=== PATIENT | male | born 1960 | race Caucasian/White ===

== ENCOUNTER 2021-09-18 14:38 | Outpatient (REF) | payer BC, SELFPAY ==
--- NOTE | ~2021-09-18 | XR_ITS ---
EXAMINATION: XR ABDOMEN KUB CLINICAL INDICATION: Ureteral stone COMPARISON: None TECHNIQUE: AP view of the abdomen. FINDINGS: No right-sided stone is seen. There are several high densities that project over the lower pole of the left kidney suggestive of stones, largest measuring 6 mm. There are 2 round laminated calcification in the left pelvis suggestive of calcified phleboliths. There is a more superior 3 x 4 mm calcification does not appear round. It is uncertain whether this presents a left distal ureteral stone or phlebolith. There are other smaller left pelvic calcifications measuring 1 to 2 mm also difficult to characterize. Bowel gas pattern is normal. There are postsurgical changes to the lower lumbar spine. XR/XR KUB IMPRESSION: Left lower pole renal stones. Several left pelvic calcifications, questionable for a left distal ureteral stone versus calcified phlebolith.
== END 2021-09-18 14:39 | disposition home or self-care (01) ==
LOC: HO.XRAY 14:38
PROVIDERS: PCP Internal Medicine; Visit Provider Urology
DX: N20.0 Calculus of kidney (principal); N20.1 Calculus of ureter; C67.9 Malignant neoplasm of bladder, unspecified
CPT/HCPCS: 52000; 74018

== ENCOUNTER 2021-09-18 16:13 | Outpatient (REF) | payer BC, SELFPAY ==
[2021-09-18 16:39] LABS: Urine Cytology See Pathology rpt
== END 2021-09-18 16:14 | disposition home or self-care (01) ==
LOC: HO.LAB 16:13
PROVIDERS: Visit Provider Urology
DX: C67.9 Malignant neoplasm of bladder, unspecified (principal)
CPT/HCPCS: 88112

== ENCOUNTER 2022-07-29 11:35 | Outpatient (REF) | payer OTHER, SELFPAY ==
--- NOTE | ~2022-07-29 | XR_ITS ---
EXAMINATION: XR ABDOMEN KUB CLINICAL INDICATION: Calculus of kidney COMPARISON: 09/18/2021 TECHNIQUE: AP view of the abdomen. FINDINGS: There is a 1 cm calcification overlying the lower pole of the left kidney, similar to prior. Small adjacent calculi noted. Pelvic phleboliths. Nonobstructive bowel gas pattern. Gas and stool throughout the colon. The lung bases are clear. Lumbosacral spinal fusion hardware. XR/XR KUB IMPRESSION: Left lower pole renal calculi are similar to prior.
== END 2022-07-29 11:36 | disposition home or self-care (01) ==
LOC: HO.XRAY 11:35
PROVIDERS: PCP Internal Medicine; Visit Provider Urology
DX: N20.0 Calculus of kidney (principal)
CPT/HCPCS: 74018

== ENCOUNTER 2022-11-19 14:37 | Outpatient (REF) | payer OTHER, SELFPAY ==
--- NOTE | ~2022-11-19 | US_ITS ---
EXAMINATION: US RETROPERITONEAL LIMITED (RENAL ONLY) CLINICAL INFORMATION: Calculus of kidney. COMPARISON: X-ray KUB 07/29/2022 and 02/16/2022. TECHNIQUE: Real-time imaging of the kidneys. FINDINGS: RIGHT KIDNEY: 11.6 x 7.5 x 7.2 cm (SAG x AP x TRV). The kidney is normal in size, contour, and echogenicity. Renal cortical thickness is normal. No calculi or focal parenchymal lesions. No hydronephrosis. LEFT KIDNEY: 12.9 x 6.3 x 6.6 cm (SAG x AP x TRV). The kidney is normal in size, contour, and echogenicity. Renal cortical thickness is normal. No focal parenchymal lesions or hydronephrosis. Nonobstructing renal stones measuring 4 mm in the lower pole and 3 mm in the mid pole. US/US renal BI IMPRESSION: Nonobstructing left renal stones measuring 4 mm in the lower pole and 3 mm in the mid pole.
== END 2022-11-19 14:38 | disposition home or self-care (01) ==
LOC: HO.HMGCX 14:37
PROVIDERS: PCP Internal Medicine; Visit Provider Urology
DX: N20.0 Calculus of kidney (principal)
CPT/HCPCS: 76775